=== PATIENT | male | born 1955 | race Caucasian/White ===

== ENCOUNTER 2021-10-22 19:05 | Emergency (ER) | payer OTHER, BC, MEDICARE, SELFPAY ==
[2021-10-22 19:14] VITALS: BP 116/83; PULSE 119; RESP 18; TEMP 36.7; O2SAT 92; BMI 35.6
--- NOTE | 2021-10-22 19:24 | ECG_ITS ---
[facility] Test Date: 2021-10-22 Pat Name: Lucio Koehler Department: Room: Gender: Male Housing Counselor: : 1955 Requested By: Chico Jackson Order Number: [id number] Sincere MD: Sondra Car M.D. Measurements Intervals [place] Rate: 119 P: 26 CA: 149 QRS: -35 QRSD: 103 T: 33 QT: 383 QTc: 540 Interpretive Statements SINUS TACHYCARDIA LEFT AXIS DEVIATION [QRS AXIS < -30] MINIMAL VOLTAGE CRITERIA FOR LVH, CONSIDER NORMAL VARIANT [MEETS CRITERIA IN ONE OF: R(aVL), S(V1), R(V5), R(V5/V6)+S(V1)] NONSPECIFIC ST & T-WAVE ABNORMALITY No previous ECG available for comparison Electronically Signed On 10-23-2021 18:52:43 CDT by Sondra Car M.D. [id number]
--- NOTE | 2021-10-22 19:26 | W.ED.WEAKNES ---
HPI - Weakness General: Chief complaint: Weakness Stated complaint: WEAKNESS Time Seen by Provider: 10/22/21 19:15 History of Present Illness: 65-year-old male presenting today with lower extremity weakness. Patient notes onset of symptoms over the last couple of days. Has had frequent falls. Notes that the symptoms appear to be global. Has been evaluated by multiple physicians for the same. No definitive diagnosis. He notes that he continues to fall. Did not strike his head. He notes right shoulder pain. Which is acute on chronic. Shoulder is already slinged by prior visits. He denies fevers or chills. He denies cough. He denies chest pain. He denies shortness of breath. He denies abdominal pain. He denies dysuria or polyuria. Review of Systems General: Reports: 10 or more systems reviewed and unremarkable except in HPI and below Physical Exam Const: COMMON NORMALS: no acute distress, patient oriented x3 and alert GENERAL APPEARANCE: cooperative ORIENTATION/CONSCIOUSNESS: Yes awake, Yes oriented to person, Yes oriented to place and Yes oriented to time HENMT: COMMON NORMALS: normocephalic, atraumatic, external ears normal, Normal external nose present and moist oral mucous membranes HEAD & SCALP: normal to inspection, normocephalic and atraumatic NOSE: Normal external nose present GENERAL EAR: hearing grossly impaired EXTERNAL EAR: Yes external ears normal Eye: COMMON NORMALS: Equal, round and reactive pupils present, EOMs intact bilaterally, conjunctivae normal and no scleral icterus GENERAL EYE: appearance normal, both eyes and all related structures EYELID: eyelids normal CONJUNCTIVA: Yes conjunctivae normal SCLERA: sclerae normal PUPIL: Yes Equal, round and reactive pupils present Neck/C-Spine: COMMON NORMALS: full ROM, supple and no JVD GENERAL: Yes normal visual inspection Lymph: LYMPHATIC: no lymphadenopathy noted and no lymphedema noted Chest: COMMONS NORMALS: normal inspection of the chest Resp: COMMON NORMALS: normal respiratory effort, No retractions and No use of accessory muscles Cardio: COMMON NORMALS: no JVD, regular rate and regular rhythm RATE: regular rate RHYTHM: regular rhythm GI: COMMON NORMALS: Normal to inspection, nondistended, normoactive bowel sounds present : COMMON NORMALS: Yes no CVA tenderness BLADDER/KIDNEY EXAM: Yes no CVA tenderness Back/Pelvis: COMMON NORMALS: no CVA tenderness and thoracic and lumbar spine normal to inspection Extremity: COMMON NORMALS: normal to inspection, full ROM and capillary refill normal GENERAL: Yes normal exam except as noted Neuro: COMMON NORMALS: patient oriented x3, CN's II-XII intact bilaterally, moves all extremities, no focal motor deficits, no sensory deficits noted and gait normal SENSORIUM/ORIENTATION: Yes alert, Yes oriented to person, Yes oriented to place and Yes oriented to time Psych: COMMON NORMALS: mental status grossly normal, Normal thought process present, cooperative and normal affect THOUGHT PROCESS: Normal thought process present Skin: COMMON NORMALS: no rashes or lesions noted and no wounds GENERAL SKIN EXAM: no rashes or lesions noted Course Vital Signs: Vital signs: Vital Signs Temperature 98.0 F 10/22/21 19:14 Pulse Rate 115 H 10/22/21 21:30 Respiratory Rate 22 H 10/22/21 20:01 Blood Pressure 156/96 10/22/21 21:30 Pulse Oximetry 94 10/22/21 21:30 Oxygen Delivery Me thod 10/22/21 21:30 MDM - Weakness Medical Decision Making 65-year-old male presenting today with global weakness. EKG is unremarkable and not consistent with that ST wave changes suggestive of acute ischemia or life-threatening arrhythmia. Patient's vital signs with slight tachycardia. Patient bolused 2 L normal saline with improvement. Patient's glucose is elevated without evidence of DKA or HHS. Patient's initial lactic is elevated. Suspect improvement after 2 L normal saline. Of note patient with significant Parkinson's disease. Resulting in frequent falls. Patient has close follow-up with neurology. Also close follow-up with orthopedics tomorrow. Discussed risks and benefits of admission versus discharge with patient. Patient wishing to go home after normal saline bolus. Patient was discharged in stable condition with strict return precautions given. Lab Data : 10/22/21 19:20 10/22/21 19:20 Radiology Impressions Abdomen/Pelvis CT 10/22/21 20:24 IMPRESSION: 1. Mildly prominent fluid in the small bowel without dilation suggestive of an enteritis. 2. Coronary artery atherosclerotic calcifications suspected. 3. Constipation. Laboratory Results WBC 10.3 10^3/uL (4.0-10.0) H 10/22/21 19:20 RBC 5.28 10^6/uL (4.1-5.3) 10/22/21 19:20 Hgb 16.0 g/dL (11.7-16.6) 10/22/21 19:20 Hct 46.8 % (42.0-52.0) 10/22/21 19:20 MCV 88.6 fl (80-94) 10/22/21 19:20 MCH 30.3 pg (28.0-34.0) 10/22/21 19:20 MCHC 34.2 g/dL (30.0-36.0) 10/22/21 19:20 RDW 12.6 % (12.1-15.1) 10/22/21 19:20 Plt Count 263 10^3/cmm (130-400) 10/22/21 19:20 MPV 10.7 fL (7.4-10.4) H 10/22/21 19:20 Neut % (Auto) 72.3 % 10/22/21 19:20 Lymph % (Auto) 15.4 % 10/22/21 19:20 Carlisle % (Auto) 9.9 % 10/22/21 19:20 Eos % (Auto) 1.1 % 10/22/21 19:20 Baso % (Auto) 0.7 % 10/22/21 19:20 Neut # (Auto) 7.46 10^3/uL (1.8-7.7) 10/22/21 19:20 Lymph # (Auto) 1.6 10^3/uL (0.8-4.8) 10/22/21 19:20 Carl[place] # (Auto) 1.0 10^3/uL (0.2-0.9) H 10/22/21 19:20 Eos # (Auto) 0.1 10^3/uL (0.0-0.8) 10/22/21 19:20 Baso # (Auto) 0.1 10^3/uL (0.0-0.1) 10/22/21 19:20 Nucleated RBC % (auto) 0 % 10/22/21 19:20 Nucleated RBCs # 0.0 /100WBC 10/22/21 19:20 Specimen Type Venous 10/22/21 09:17 Sample Site Not specified 10/22/21 09:17 Xavier Test Pos 10/22/21 09:17 VBG pH 7.39 (7.32-7.42) 10/22/21 09:17 VBG pCO2 44.3 mmHg (41-51) 10/22/21 09:17 VBG pO2 19.9 mmHg (25-40) L 10/22/21 09:17 VBG HCO3 26.5 mmol/L (24-28) 10/22/21 09:17 VBG Base Excess 1.0 mmol/L (-3.0-3.0) 10/22/21 09:17 VBG Hematocrit 48.1 % (42-52) 10/22/21 09:17 O2 Delivery Device Nc 10/22/21 09:17 O2 Liters/Min 3.0 % 10/22/21 09:17 Coast[employer] Officer ID [email or web address] 10/22/21 09:17 Sodium 136 mmol/L (136-145) 10/22/21 19:20 Potassium 3.5 mmol/L (3.5-5.1) 10/22/21 19:20 Chloride 97 mmol/L (98-107) L 10/22/21 19:20 Carbon Dioxide 20 mmol/L (22-29) L 10/22/21 19:20 Anion Gap 22.5 (5-19) H 10/22/21 19:20 BUN 19 mg/dL (8-23) 10/22/21 19:20 Creatinine 0.6 mg/dL (0.7-1.2) L 10/22/21 19:20 GFR Calculation 136.1 mL/min (90-130) H 10/22/21 19:20 Glucose 347 mg/dL (65-115) H 10/22/21 19:20 Calculated Osmolality 298 mOsm/kg (285-295) H 10/22/21 19:20 Lactate 2.9 mmol/L (0.5-2.2) H 10/22/21 21:20 Calcium 8.9 mg/dL (8.5-10.5) 10/22/21 19:20 Total Bilirubin 1.7 mg/dL (0.15-1.2) H 10/22/21 19:20 AST 14 U/L (0-40) 10/22/21 19:20 ALT 9 U/L (0-41) 10/22/21 19:20 Alkaline Phosphatase 103 IU/L (40-130) 10/22/21 19:20 Troponin T Baseline 13 ng/L (0-15) 10/22/21 19:20 Troponin T 120 Minute 12.53 ng/L (0-15) 10/22/21 21:20 Delta Troponin T -0.47 ABS# (0-10) L 10/22/21 21:20 Total Protein 6.7 g/dL (6.6-8.7) 10/22/21 19:20 Albumin 3.9 g/dL (3.5-5.2) 10/22/21 19:20 Globulin 2.8 g/dL (1.3-4.6) 10/22/21 19:20 Urine Color Dark yellow (Yellow) 10/22/21 19:27 Urine Appearance Clear (CLEAR) 10/22/21 19:27 Urine pH 5 (5-7) 10/22/21 19:27 Ur Specific Cascade 1.020 (1.005-1.030) 10/22/21 19:27 Urine Protein Neg (Negative) 10/22/21 19:27 Urine Glucose (UA) 4+ (Normal) H 10/22/21 19:27 Urine Ketones 2+ (Negative) H 10/22/21 19:27 Urine Blood Neg (Negative) 10/22/21 19:27 Urine Nitrate Negative (Negative) 10/22/21 19:27 Urine Bilirubin Neg (Negative) 10/22/21 19:27 Urine Urobilinogen 4 mg/dL (Negative) H 10/22/21 19:27 Ur Leukocyte Esterase Negative (Negative) 10/22/21 19:27 Discharge Plan Discharge Patient Disposition: Home Clinical Impression: Hyperglycemia, Fall from ground level Condition: Stable Discharge Orders: Discharge ED (Routine); Ordered 10/22/21 Ordered By: Chico Jackson Discharge Diet: Advance as tolerated and Usual diet Discharge Activity: Resume usual activity Patient Instructions: Opioid Safety Coding Level of Care Code ED Grinding Wheel Facer for Katie Fwd Exam Comprehensive
[2021-10-22 19:29] LABS: Basophils # 0.1 10^3/uL (0.0-0.1); Basophils % 0.7 %; Eosinophils # 0.1 10^3/uL (0.0-0.8); Eosinophils % 1.1 %; Hematocrit 46.8 % (42.0-52.0); Lymphocytes # 1.6 10^3/uL (0.8-4.8); Lymphocytes % 15.4 %; Mean Corpuscular HGB Conc 34.2 g/dL (30.0-36.0); Mean Corpuscular Hemoglobin 30.3 pg (28.0-34.0); Mean Corpuscular Volume 88.6 fl (80-94); Mean Platelet Volume 10.7 fL (7.4-10.4); Monocytes % 9.9 %; Neutrophils # 7.46 10^3/uL (1.8-7.7); Neutrophils % 72.3 %; Nucleated Red Blood Cells % 0 %; Platelet Count 263 10^3/cmm (130-400); Red Blood Count 5.28 10^6/uL (4.1-5.3); Red Cell Distribution Width 12.6 % (12.1-15.1); White Blood Count 10.3 10^3/uL (4.0-10.0)
[2021-10-22 19:32] LABS: Add Urine Microscopic? NO; Charge for UA Resulting for Rev
[2021-10-22 19:36] LABS: Bilirubin Urine Neg (Negative); Blood Urine Neg (Negative); Glucose Urine UA 4+ (Normal); Ketones Urine 2+ (Negative); Leukocyte Esterase Urine Negative (Negative); Nitrate Urine Negative (Negative); Protein Urine Neg (Negative); Urine Appearance Clear (CLEAR); Urine Color Dark Yellow (Yellow); Urobilinogen Urine 4 mg/dL (Negative); pH Urine 5 (5-7)
[2021-10-22 19:50] LABS: Troponin(5th) Baseline 13 ng/L (0-15)
[2021-10-22 19:52] LABS: Alanine Aminotransferase 9 U/L (0-41); Albumin Level 3.9 g/dL (3.5-5.2); Alkaline Phosphatase 103 IU/L (40-130); Anion Gap 22.5 (5-19); Aspartate Amino Transferase 14 U/L (0-40); Blood Urea Nitrogen 19 mg/dL (8-23); Calcium 8.9 mg/dL (8.5-10.5); Carbon Dioxide 20 mmol/L (22-29); Chloride 97 mmol/L (98-107); Globulin 2.8 g/dL (1.3-4.6); Glomerular Filtration Rate 136.1 mL/min (90-130); Glucose 347 mg/dL (65-115); Osmolality Calculated 298 mOsm/kg (285-295); Potassium 3.5 mmol/L (3.5-5.1); Sodium 136 mmol/L (136-145); Total Bilirubin 1.7 mg/dL (0.15-1.2); Total Protein 6.7 g/dL (6.6-8.7)
[2021-10-22 19:53] LABS: Creatinine Clr Calc Pharmacy 148.8246
[2021-10-22 20:01] VITALS: BP 116/83; PULSE 118; RESP 22; O2SAT 94
--- NOTE | 2021-10-22 20:24 | CTR_ITS ---
PROCEDURE INFORMATION: Exam: CT Abdomen And Pelvis With Contrast Exam date and time: 10/22/2021 8:55 PM Age: 65 years old Clinical indication: Abdominal pain; Additional info: Diffuse abdominal pain TECHNIQUE: Imaging protocol: Computed tomography of the abdomen and pelvis with contrast. Radiation optimization: All CT scans at this facility use at least one of these dose optimization techniques: automated exposure control; mA and/or kV adjustment per patient size (includes targeted exams where dose is matched to clinical indication); or iterative reconstruction. Contrast material: OMNI 350; Contrast volume: 80 ml; Contrast route: INTRAVENOUS (IV); COMPARISON: No relevant prior studies available. RADIATION DOSE METRICS: Total DLP (mGy-cm): 1178.29 FINDINGS: Heart: Coronary artery atherosclerotic calcifications suspected. Liver: Normal. No mass. Gallbladder and bile ducts: Normal. No calcified stones. No ductal dilation. Pancreas: Normal. No ductal dilation. Spleen: Normal. No splenomegaly. Adrenal glands: Normal. No mass. Kidneys and ureters: Normal. No hydronephrosis. Stomach and bowel: Mildly prominent fluid in the small bowel without dilation suggestive of an enteritis. Constipation. Appendix: No evidence of appendicitis. Intraperitoneal space: Unremarkable. No free air. No significant fluid collection. Vasculature: Unremarkable. No abdominal aortic aneurysm. Lymph nodes: Unremarkable. No enlarged lymph nodes. Urinary bladder: Unremarkable as visualized. Reproductive: Unremarkable as visualized. Bones/joints: Unremarkable. No acute fracture. Soft tissues: Unremarkable. CT/CT abdomen pelvis w con* [id number] IMPRESSION: 1. Mildly prominent fluid in the small bowel without dilation suggestive of an enteritis. 2. Coronary artery atherosclerotic calcifications suspected. 3. Constipation.
[2021-10-22] MEDS: iohexol 350 mg/mL 100 mL Btl IV (20:57)
--- NOTE | 2021-10-22 21:24 | ECG_ITS ---
[facility] Test Date: 2021-10-22 Pat Name: Lucio Koehler Department: Room: Gender: Male In Home Nanny: : 1955 Requested By: Chico Jackson Order Number: [id number] Sincere MD: Sondra Car M.D. Measurements Intervals [place] Rate: 111 P: 64 WI: 155 QRS: -23 QRSD: 106 T: 67 QT: 370 QTc: 505 Interpretive Statements SINUS TACHYCARDIA BORDERLINE LEFT AXIS DEVIATION [QRS AXIS < -20] MODERATE VOLTAGE CRITERIA FOR LVH, CONSIDER NORMAL VARIANT [MEETS CRITERIA IN ONE OF: R(aVL), S(V1), R(V5), R(V5/V6)+S(V1)] ABNORMAL RHYTHM ECG Compared to ECG 10/22/2021 19:20:56 T-wave abnormality no longer present Electronically Signed On 10-23-2021 19:21:47 CDT by Sondra Car M.D. [id number]
[2021-10-22 21:30] VITALS: BP 156/96; PULSE 115; O2SAT 94
[2021-10-22 21:42] LABS: Blood Gas Allen Test Pos; Blood Gas Sample Site Not specified; Blood Gas Sample Type Venous; HCO3 VBG 26.5 mmol/L (24-28); Oxygen Device NC; PCO2 VBG 44.3 mmHg (41-51); PO2 VBG 19.9 mmHg (25-40); Venous Blood Gas Hematocrit 48.1 % (42-52); pH VBG 7.39 (7.32-7.42)
[2021-10-22 21:52] LABS: Lactate (Lactic Acid level) 2.9 mmol/L (0.5-2.2)
[2021-10-22] MEDS: sodium chloride 0.9% 1,000 ML 999 ML IV ×2 (21:54→22:42)
[2021-10-22 21:55] LABS: Troponin 5 2HR 12.53 ng/L (0-15)
[2021-10-22 21:57] LABS: Troponin 5 2HR Delta -0.47 ABS# (0-10)
[2021-10-22 23:53] VITALS: BP 187/102; PULSE 104; RESP 20; O2SAT 98
== END 2021-10-22 23:53 | disposition home or self-care (01) ==
PROVIDERS: Emergency Provider Emergency Medicine
DX: R73.9 Hyperglycemia, unspecified (principal); W18.30XA Fall on same level, unspecified, initial encounter
CPT/HCPCS: 36415; 74177; 80053; 81003; 82803; 83605; 84484; 85025; 93005; 96360; 99285; J7030; Q9967